=== PATIENT | female | born 1945 | race Caucasian/White ===

== ENCOUNTER → 2017-03-28 07:55 | Outpatient (CLI) | payer MEDICARE, MEDICAID | END | disposition home or self-care (01) | LOC: D.MAMMO 02-10 09:00 | DX: Z12.31 Encounter for screening mammogram for malignant neoplasm of breast (principal) ==

== ENCOUNTER → 2017-09-05 13:12 | Outpatient (CLI) | payer MEDICARE | END | disposition home or self-care (01) | LOC: D.MRI 09-04 08:30 | DX: M48.00 Spinal stenosis, site unspecified (principal) ==

== ENCOUNTER 2017-09-29 08:28 | Day surgery (SDC) | payer MEDICARE, MEDICAID ==
[~2017-09-29] VITALS: Ht 160 cm; Wt 77.1 kg
--- NOTE | ~2017-09-29 | OP ---
PATIENT NAME: VANIA SAWYER MEDICAL RECORD: [id number] :45 LOCATION:D.[facility] ADMISSION DATE: SURGEON: POOJA PARRISH MD DATE OF OPERATION: 09/29/2017 DATE OF SERVICE: 09/29/2017. 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 PROCEDURE: Thoracic laminectomy T12-L1 right with METRx retractor and discectomy and foraminotomy, medial facetectomy, and transpedicular decompression. SURGEON: Pooja Parrish MD DESCRIPTION AND TECHNIQUE: After induction of general endotracheal anesthesia, the patient was rolled prone on a Maximo frame. The thoracic spine was prepped and draped in usual sterile fashion. Fluoroscopic x-ray and spinal needle localized at T12-L1 interspace on the right side. A stab incision was created with a #11 blade and series of dilators was used to advance a METRx retractor at T12-L1 interspace on the right side. Level was confirmed with fluoroscopic x-ray. A Midas Kong drill and microscope were used to perform a laminectomy, medial facetectomy, and foraminotomy at T12-L1 on the right. Hypertrophied ligamentum flavum was removed with Cloward rongeurs. There was an obvious free fragment disc herniation compressing the right T12 and L1 nerve roots as well as dura ventrally. This was removed in a piecemeal fashion with pituitary rongeurs. Disc material was removed from the disc space. Following this, the dura was decompressed well. Meticulous hemostasis was maintained throughout the wound. I did a transpedicular approach to get the T12-L1 interspace on the right side, the retractor was removed. The fascia was closed with 2-0 Vicryl suture. Subdermal layer was closed with 3-0 Vicryl suture, skin was closed with elda, a sterile dressing was applied to the wound. The patient was awakened in good condition and taken to recovery. All counts were reported as correct. Estimated blood loss was minimal. 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 [address] [facility], [id number]
[~2017-09-29 08:28] MED LIST: BYSTOLIC10 MG PO; COZAAR100 MG PO; CYCLOBENZAPRINE10 MG PO; NEURONTIN 400400 MG PO; VITAMIN C1000 MG PO; VITAMIN D31000 UNI2
[2017-09-29 09:29] LABS: HEMATOCRIT 27.7 % (36.0-48.0); HEMOGLOBIN 8.3 g/dL (12-16); MCH 23.6 pg (26.0-34.0); MCV 78.9 fL (80.0-100.0); MEAN PLATELET VOLUME 10.2 fL (7.4-10.4); RBC 3.51 10x6/uL (4.00-5.40); RDW 15.9 % (11.5-14.5); WBC 4.5 10x3/uL (4.8-10.8)
[2017-09-29 09:52] VITALS: BP 136/69; Ht 160 cm; Wt 77.1 kg
[2017-09-30] MEDS ORDERED: ENDOCET 10-3251 TAB PO (19:50)
== END 2017-09-29 18:20 | disposition home or self-care (01) ==
LOC: D.OPS 08:28 → D.PAN 10:30 → D.OPS 10:30
PROVIDERS: Anesthesiology
DX: M51.15 Intervertebral disc disorders with radiculopathy, thoracolumbar region (principal); I10 Essential (primary) hypertension; Z01.812 Encounter for preprocedural laboratory examination

== ENCOUNTER 2017-09-30 13:58 | Inpatient (IN) | payer MEDICARE, MEDICAID ==
[~2017-09-30] VITALS: Ht 160 cm; Wt 77.7 kg
[2017-09-30] MEDS ORDERED: ENDOCET 10-3251 TAB PO (19:50)
[2017-09-30 19:59] VITALS: BP 105/52; Ht 160 cm; Wt 77.7 kg
[2017-09-30 21:57] VITALS: BP 147/70
[2017-10-01] VITALS (10 sets, daily range): BP systolic 98–161; BP diastolic 57–85
[2017-10-01 05:35] LABS: BASOPHILS 0.1 % (0-2); EOSINOPHILS 0.1 % (0-7); HEMATOCRIT 25.5 % (36.0-48.0); IMMATURE GRANULOCYTES 0.2 % (0-5); LYMPHOCYTES 16.4 % (15-50); MCH 23.3 pg (26.0-34.0); MCHC 29.4 g/dL (31.0-37.0); MCV 79.2 fL (80.0-100.0); NEUTROPHILS 72.2 % (40-80); PLATELET COUNT 393 10x3/uL (130-400); RBC 3.22 10x6/uL (4.00-5.40); RDW 16.2 % (11.5-14.5)
[2017-10-01 05:45] LABS: WBC 8.4 10x3/uL (4.8-10.8)
[2017-10-01 05:46] LABS: HEMOGLOBIN 7.5 g/dL (12-16)
[2017-10-01 05:52] LABS: CALC OSMOLALITY 274 mosm/kg (275-300); CALCIUM 8.8 mg/dL (8.5-10.1); CARBON DIOXIDE 28.5 mmol/L (21.0-32.0); CHLORIDE - SERUM 104 mmol/L (98-107); CREATININE - SERUM 0.7 mg/dL (0.6-1.3); GLUCOSE 116 mg/dL (74-106); POTASSIUM - SERUM 3.8 mmol/L (3.5-5.1); SODIUM 138 mmol/L (136-145); UREA NITROGEN 8 mg/dL (7-18); eGFR NON AFRICAN AMERICAN 87 mL/min (90-120)
[2017-10-02] VITALS (16 sets, daily range): BP systolic 106–160; BP diastolic 55–82
[2017-10-02 07:11] LABS: BASOPHILS 0 % (0-2); EOSINOPHILS 0 % (0-7); HEMATOCRIT 30.1 % (36.0-48.0); IMMATURE GRANULOCYTES 0.5 % (0-5); LYMPHOCYTES 13.4 % (15-50); MCH 24.7 pg (26.0-34.0); MCHC 31.2 g/dL (31.0-37.0); MCV 79.2 fL (80.0-100.0); MEAN PLATELET VOLUME 10.2 fL (7.4-10.4); MONOCYTES 9.7 % (2-11); NEUTROPHILS 76.4 % (40-80); PLATELET COUNT 329 10x3/uL (130-400); RDW 16.4 % (11.5-14.5); WBC 7.4 10x3/uL (4.8-10.8)
[2017-10-02 07:29] LABS: CALC OSMOLALITY 275 mosm/kg (275-300); CALCIUM 8.5 mg/dL (8.5-10.1); CHLORIDE - SERUM 103 mmol/L (98-107); CREATININE - SERUM 0.6 mg/dL (0.6-1.3); GLUCOSE 122 mg/dL (74-106); POTASSIUM - SERUM 3.8 mmol/L (3.5-5.1); SODIUM 138 mmol/L (136-145); UREA NITROGEN 9 mg/dL (7-18); eGFR NON AFRICAN AMERICAN > 90 mL/min (90-120)
[2017-10-02 07:34] LABS: HEMOGLOBIN 9.4 g/dL (12-16)
[2017-10-02 14:31] LABS: % SATURATION 27 % (15-55); IRON 96 ug/dl (35-150); TOTAL IRON BIND CAPACITY 354 ug/dl (260-445); UNSAT IRON BIND CAPACITY 258 ug/dl (150-375)
[2017-10-03 04:00] VITALS: BP 143/71
[2017-10-03 04:32] LABS: BASOPHILS 0 % (0-2); EOSINOPHILS 0 % (0-7); HEMATOCRIT 29.6 % (36.0-48.0); HEMOGLOBIN 9.2 g/dL (12-16); IMMATURE GRANULOCYTES 0.4 % (0-5); LYMPHOCYTES 9.3 % (15-50); MCH 24.7 pg (26.0-34.0); MCHC 31.1 g/dL (31.0-37.0); MCV 79.6 fL (80.0-100.0); MEAN PLATELET VOLUME 10.3 fL (7.4-10.4); MONOCYTES 1.3 % (2-11); PLATELET COUNT 302 10x3/uL (130-400); RBC 3.72 10x6/uL (4.00-5.40); RDW 16.7 % (11.5-14.5); WBC 6.7 10x3/uL (4.8-10.8)
[2017-10-03 04:46] LABS: CALC OSMOLALITY 281 mosm/kg (275-300); CALCIUM 8.3 mg/dL (8.5-10.1); CARBON DIOXIDE 24.1 mmol/L (21.0-32.0); CHLORIDE - SERUM 106 mmol/L (98-107); CREATININE - SERUM 0.6 mg/dL (0.6-1.3); GLUCOSE 154 mg/dL (74-106); SODIUM 139 mmol/L (136-145); eGFR NON AFRICAN AMERICAN > 90 mL/min (90-120)
[2017-10-03 04:47] LABS: UREA NITROGEN 14 mg/dL (7-18)
[2017-10-03 09:17] LABS: FOLATE (FOLIC ACID) - SERUM 7.8 ng/mL (>3.0)
[2017-10-03 09:39] VITALS: BP 164/73
[2017-10-03 12:02] VITALS: BP 135/67
[2017-10-03 20:00] VITALS: BP 159/66
[2017-10-04 04:00] VITALS: BP 150/61
[2017-10-04 04:52] LABS: BASOPHILS 0 % (0-2); EOSINOPHILS 0 % (0-7); HEMATOCRIT 29.9 % (36.0-48.0); HEMOGLOBIN 9.1 g/dL (12-16); IMMATURE GRANULOCYTES 0.4 % (0-5); LYMPHOCYTES 12.5 % (15-50); MCH 24.4 pg (26.0-34.0); MCHC 30.4 g/dL (31.0-37.0); MCV 80.2 fL (80.0-100.0); MEAN PLATELET VOLUME 10.5 fL (7.4-10.4); MONOCYTES 6.5 % (2-11); NEUTROPHILS 80.6 % (40-80); PLATELET COUNT 303 10x3/uL (130-400); RBC 3.73 10x6/uL (4.00-5.40); WBC 8.2 10x3/uL (4.8-10.8)
[2017-10-04 05:05] LABS: CALC OSMOLALITY 284 mosm/kg (275-300); CALCIUM 8.3 mg/dL (8.5-10.1); CHLORIDE - SERUM 107 mmol/L (98-107); CREATININE - SERUM 0.6 mg/dL (0.6-1.3); GLUCOSE 131 mg/dL (74-106); SODIUM 141 mmol/L (136-145); UREA NITROGEN 17 mg/dL (7-18); eGFR NON AFRICAN AMERICAN > 90 mL/min (90-120)
[2017-10-04 08:08] VITALS: BP 176/84
[2017-10-04 12:53] VITALS: BP 168/80
[2017-10-04 15:54] VITALS: BP 130/70
[2017-10-04 20:00] VITALS: BP 133/59
[2017-10-05] VITALS: BP 119/65
[2017-10-05 04:00] VITALS: BP 146/66
[2017-10-05 04:44] LABS: BASOPHILS 0 % (0-2); EOSINOPHILS 0 % (0-7); HEMOGLOBIN 8.8 g/dL (12-16); IMMATURE GRANULOCYTES 0.3 % (0-5); LYMPHOCYTES 19.4 % (15-50); MCH 24.2 pg (26.0-34.0); MCHC 30.3 g/dL (31.0-37.0); MCV 79.9 fL (80.0-100.0); MEAN PLATELET VOLUME 10.2 fL (7.4-10.4); NEUTROPHILS 72.3 % (40-80); PLATELET COUNT 270 10x3/uL (130-400); RBC 3.63 10x6/uL (4.00-5.40); RDW 17.2 % (11.5-14.5); WBC 7.4 10x3/uL (4.8-10.8)
[2017-10-05 04:58] LABS: CALC OSMOLALITY 282 mosm/kg (275-300); CALCIUM 8.2 mg/dL (8.5-10.1); CARBON DIOXIDE 26.2 mmol/L (21.0-32.0); CHLORIDE - SERUM 107 mmol/L (98-107); CREATININE - SERUM 0.7 mg/dL (0.6-1.3); GLUCOSE 110 mg/dL (74-106); POTASSIUM - SERUM 3.9 mmol/L (3.5-5.1); SODIUM 141 mmol/L (136-145); UREA NITROGEN 16 mg/dL (7-18); eGFR NON AFRICAN AMERICAN 87 mL/min (90-120)
[2017-10-05 07:55] VITALS: BP 158/84
[2017-10-05] MEDS ORDERED: PROTONIX40 MG PO (12:47)
[2017-10-05] MEDS ORDERED: STERAPRED DS 1010 MG PO (12:47)
[2017-10-05] MEDS ORDERED: NEURONTIN 300300 MG PO (12:47)
[2017-10-05] MEDS ORDERED: Duragesic TRANSDERM (12:47)
== END 2017-10-05 14:43 | disposition home health service (06) | DRG 552 ==
LOC: D.ER 13:58 → OBSVTIME 16:00 → D.MS 16:00
PROVIDERS: Family Medicine; Internal Medicine Nephrology
DX: M54.6 Pain in thoracic spine (principal); M96.843 Postprocedural seroma of a musculoskeletal structure following other procedure; M51.34 Other intervertebral disc degeneration, thoracic region; D50.9 Iron deficiency anemia, unspecified; I10 Essential (primary) hypertension; G62.9 Polyneuropathy, unspecified; F41.9 Anxiety disorder, unspecified; Y83.9 Surgical procedure, unspecified as the cause of abnormal reaction of the patient, or of later complication, without mention of misadventure at the time of the procedure

== ENCOUNTER → 2019-01-04 08:25 | Outpatient (CLI) | payer MEDICARE ==
[2017-09-30 19:59] VITALS: BMI 30.3
--- NOTE | ~2019-01-04 | EC ---
PATIENT:VANIA SAWYER DATE OF SERVICE: 01/04/19 SEX: F MEDICAL RECORD: [id number] DATE OF : 45 LOCATION:D[facility] AGE OF PATIENT: 73 ADMISSION DATE: 01/04/19 REFERRING PHYSICIAN: INTERPRETING PHYSICIAN: FUENTES ESPINO MD ECHOCARDIOGRAM REPORT ECHO CHARGES 4 ECHO COMPLETE Date: 01/04/19 CLINICAL DIAGNOSIS: MR/MURMUR H/O HTN ECHOCARDIOGRAPHIC MEASUREMENTS (adult normal given) AC root (d.<3.7cm) 3.0 cm LV Septum d (<1.2 cm> 1.1 cm Valve Excursion 1.9 cm LV Septum (systole) 1.6 cm Left Atria (s.<4.0cm> 4.1 cm LVPW d(<1.2cm) 1.0 cm RV (d.<2.3cm) 2.5 cm LVPW (sytole) 1.8 cm LV diastole(<5.6CM) 4.9 cm MV E-F(>70mm/sec) cm LV systole 2.4 cm LVOT Diameter 1.7 cm MV exc.(>10mm) cm Est.ejection fraction (50-75%) % DOPPLER: LVIT cm/sec A 83.0 cm/sec E 67.0 cm/sec LA cm/sec RVSP 37.1 mmHg LVOT 92.0 cm/sec AOP1/2T m/s Asc. Ao 212 cm/sec RVOT 62.0 cm/sec RA cm/sec PA 90.0 cm/sec AV Gradient Peak 18.0 mmHg AV Mean 8.4 mmHg AV Area 1.0 cm MV Gradient Peak 3.4 mmHg MV Mean 1.1 mmHg MV Area cm COMMENTS: OP - HC Lumber Inspector: 1 LIZETT JOHNSONOE Viscose Department Worker: 2 Dr. Goldstein TAPE# PACS Pericardial Effusion N DATE OF SERVICE: 01/04/2019 FINDINGS: 1. Left ventricular chamber size is within normal limits. Left ventricular systolic function is normal. Overall ejection fraction estimated at 60%. 2. Left atrium is enlarged at 4.1 cm. Right atrium and right ventricular chamber sizes are as well mildly dilated. 3. Valvular structures have normal structure and motion. 4. Doppler interrogation reveals moderate mitral regurgitation, moderate tricuspid regurgitation. No other valvular insufficiency or stenosis. ECHOCARDIOGRAM REPORT [id number] VANIA SAWYERA Pulmonary systolic pressure is preserved at 37 mmHg. 5. No evidence of pericardial effusion or left ventricular thrombus. TRANSINT:[id number] Voice Confirmation ID: [id number] DOCUMENT ID: [id number] FUENTES ESPINO MD CC: [id number] DICTATION DATE: 01/05/19 1104 NEEDLE BOARD REPAIRER: 01/05/19 1326 DEP CLI 01/04/19 [place] [id number] [place] [id number]
[~2019-01-04 08:25] MED LIST changes: +Duragesic TRANSDERM; +ENDOCET 10-3251 TAB PO; +NEURONTIN 300300 MG PO; +PROTONIX40 MG PO; +STERAPRED DS 1010 MG PO
== END | disposition home or self-care (01) ==
LOC: D.HCCARDIO 08:25
PROVIDERS: ATTEND Internal Medicine Cardiovascular Disease
DX: I34.0 Nonrheumatic mitral (valve) insufficiency (principal)

== ENCOUNTER → 2020-01-28 12:44 | Outpatient (CLI) | payer MEDICARE ==
[2017-09-30 19:59] VITALS: BMI 30.3
== END | disposition home or self-care (01) ==
LOC: D.HCCECHO 01-01 10:30
PROVIDERS: ATTEND Internal Medicine Cardiovascular Disease
DX: I34.0 Nonrheumatic mitral (valve) insufficiency (principal)